=== PATIENT | male | born 1945 | race Caucasian/White ===

== ENCOUNTER 2016-04-23 21:47 | Emergency (ER) | payer MEDICARE ==
[2016-04-23] MEDS ORDERED: METF500T PO (22:23)
[2016-04-23] MEDS ORDERED: PRIL20TA2 PO ×2 (22:23)
[2016-04-23] MEDS ORDERED: PERC5TAB12 PO (22:23)
[2016-04-23] MEDS ORDERED: LISI10TA3 PO (22:23)
[2016-04-23] MEDS ORDERED: ATOR10TA15 PO (22:23)
[2016-04-23 22:24] VITALS: BP 144/87; PULSE 68; RESP 18; TEMP 98.1; O2SAT 98
[2016-04-23] MEDS ORDERED: HYDROmorphone HCL PF 1 MG/ML VIAL IM ONE (22:45)
--- NOTE | 2016-04-23 22:53 | PD ---
HPI Chief Complaint: Fall Time Seen by Provider: 22:44 Travel History International Travel<30 days: No Contact w/Intl Traveler<30days: No Traveled to known affect area: No History of Present Illness HPI Patient is a 71-year-old male with history of bilateral total knee replacements on chronic opioids presenting with left knee, calf and right thumb pain. At 8: 30 AM he states his right foot slipped out from under him on wet wood and his left leg "folded" underneath him, hyperflexing the knee and landing with it flexed. He said pain and swelling of the knee since. Pain is medial anterior. He has pain with movement but has normal range of motion. He has been able to bear weight but is extremely painful. He denies any instability of the knee. His home Percocet is not helping very much. He said some pain develop in the mid calf as well. He denies he pain in the ankle, thigh, hip or foot. He denies weakness or paresthesia. He did not hit his head is consciousness. His pain on the base of the thumb denies paresthesias and weakness and instability. He didn't hit his lose consciousness and denies other injuries this time. [facility] Past Medical History High Cholesterol: Yes Diabetes: Yes Patient Takes Glucophage: Yes Diminished Hearing: No GERD: Yes Hypertension: Yes Immunizations Current: Yes Tetanus Vaccination: Unknown Influenza Vaccination: Yes Past Surgical History Appendectomy: Yes Social History Alcohol Use: Yes (SOCIAL) Tobacco Use: No (QUIT 2013) Substance Use: No Allergies-Medications (Allergen,Severity, Reaction): Coded Allergies: No Known Allergies (Unverified , 04/23/16) Reported Meds & Prescriptions Reported Meds & Active Scripts Active Reported Prilosec (Omeprazole Magnesium) 20 Mg Tab 20 Mg PO BID Prilosec (Omeprazole Magnesium) 20 Mg Tab 20 Mg PO DAILY Atorvastatin (Atorvastatin Calcium) 10 Mg Tab 10 Mg PO HS Metformin (Metformin HCl) 500 Mg Tab 500 Mg PO DAILY With a meal Percocet (Oxycodone-Acetaminophen) 5-325 mg Tab 1 Tab PO Q12HR PRN Lisinopril 10 Mg Tab 10 Mg PO DAILY Review of Systems HENT: No: Headaches, Neck Pain Musculoskeletal: Positive: Other (see the history of present illness) Neurologic: No: Weakness, Focal Abnormalities, Paresthesia, Sensory Disturbance Physical Exam Narrative GENERAL: Well-developed and well-nourished adult male in no acute distress. SKIN: Warm and dry. Good turgor without tenting. HEAD: Normocephalic and atraumatic. CARDIOVASCULAR: Regular rate and rhythm without murmurs, rubs, clicks or gallops. Radial, dorsalis pedis and posterior tibial pulses 2+ bilaterally. Refill less than 2 seconds to the right thumb and all the toes the left foot. No pedal edema. RESPIRATORY: Clear to auscultation bilaterally with symmetrical rise and fall, no distress or use of accessory muscles. MUSCULOSKELETAL: Both knees have anterior well-healed surgical scars. Left knee has edema without discoloration or warmth. Tenderness to palpation of the left medial tibial plateau and left MCL. No patellar or fibular head tenderness. There is some looseness of the endpoint with valgus stress of the left knee when compared to the right. There is a slight clicking sensation Negative varus stress test. Negative anterior and posterior drawer test the left knee. Patient's pain was squeezing on the left calf muscles which are not discolored or edematous. Palpation of the hamstring tendons feels they're firmly intact. Patient is normal range of motion of the left knee flexion and extension. Palpation of the tib-fib reveals no pain with squeezing of the mid tib-fib together does cause discomfort. Right thumb has no edema or discoloration. Palpation of the left hip, ankle and foot reveals no tenderness and they've normal range of motion. There is no laxity at the base of the thumb suggesting ligamentous disruption. Does have pain at the base of the thumb however but not the phalanges. No hand or wrist tenderness. Patient freely moving all four extremities spontaneously. Extremities without clubbing or cyanosis. No obvious deformities. NEUROLOGIC: CN II-XII grossly intact. Awake and alert. Strength 5/5 bilateral hip flexion, hip extension, knee flexion, knee extension, plantar and dorsiflexion. Sensation intact to the distal tip of all toes of left foot. Strength 5/5 in flexion, extension, abduction and adduction of the right thumb, sensation intact to the distal tip of the right thumb. Normal speech. PSYCHIATRIC: Appropriate mood and affect; insight and judgment normal. Data Data Last Documented VS Vital Signs Date Time Temp Pulse Resp B/P Pulse Ox O2 Delivery O2 Flow Rate FiO2 04/24/16 00:55 68 18 132/78 99 04/24/16 00:19 Room Air 04/23/16 22:24 98.1 Orders Hydromorphone Pf Inj (Dilaudid Pf Inj) (04/23/16 22:45) Finger ([id number]) (04/23/16 22:41) Knee, Complete (4vws) (04/23/16 22:41) Tibia/Fibula (Ap/Lat) (04/23/16 22:41) Hydromorphone Pf Inj (Dilaudid Pf Inj) (04/24/16 00:15) [facility] Medical Decision Making Medical Screen Exam Complete: Yes Emergency Medical Condition: Yes Differential Diagnosis Knee sprain versus MCL tear versus knee fracture versus tib-fib injury versus bone sprain versus fracture versus gamekeeper's thumb Narrative Course Patient is a 71-year-old male with history of bilateral total knee replacement presenting with left knee pain and edema after slip and fall on hyperflexion injury earlier this morning. He does have some increased laxity at the MCL joint and some clicking with this maneuver. He is feeling normal range of motion in the knee and is neurovascularly intact. Has tib-fib pain with squeezing the syndesmosis. No hip or ankle pain. Some pain of the right thumb which likely represent sprain, no ligamentous disruption or obvious signs of fracture. Patient was given Dilaudid 1 mg IM as his home Percocet does not seem to be helping and given he is on these for chronic pain and likely will not be very effective for acute pain. Ordered x-ray of the right thumb, left knee and left tib-fib. This patient was signed out to Dr. Lackey. Diagnosis Primary Impression: Knee contusion Qualified Code: S80.02XA - Contusion of left knee, initial encounter Additional Impression: Finger contusion Qualified Code: S60.011A - Contusion of right thumb without damage to nail, initial encounter Condition: Stable Edgar Sexton III Apr 23, 2016 22:53
--- NOTE | 2016-04-23 23:43 | RADHPO ---
EXAM DATE/TIME: 04/23/2016 23:20 [facility] COMPARISON: No previous studies available for comparison. INDICATIONS : Patient states he fell this morning, left knee pain. MEDICAL HISTORY : None. SURGICAL HISTORY : Total knee replacement, left. Total knee replacement, right. ENCOUNTER: Initial ACUITY: 1 day PAIN SCORE: 8/10 LOCATION: Left Knee FINDINGS: Four view examination of the left knee demonstrates left knee arthroplasty. No fracture. No hardware loosening. Small joint effusion. The articular surfaces are intact. Soft tissue calcifications. CONCLUSION: Left knee arthroplasty and small effusion. No fracture. Alonzo Heart MD on April 23, 2016 at 23:41 Board Certified Radiologist. This report was verified electronically.
--- NOTE | 2016-04-23 23:44 | RADHPO ---
EXAM DATE/TIME: 04/23/2016 23:22 [facility] COMPARISON: No previous studies available for comparison. INDICATIONS : Patient states he fell this morning, lower leg pain. MEDICAL HISTORY : None. SURGICAL HISTORY : Total knee replacement, right. Total knee replacement, left. ENCOUNTER: Initial ACUITY: 1 day PAIN SCORE: 4/10 LOCATION: Left Tib/Fib FINDINGS: Two view examination of the left tibia demonstrates no evidence of fracture or dislocation. Bony min eralization is normal. The soft tissue structures are intact. Left knee arthroplasty. CONCLUSION: No acute fracture. Alonzo Heart MD on April 23, 2016 at 23:42 Board Certified Radiologist. This report was verified electronically.
--- NOTE | 2016-04-23 23:45 | RADHPO ---
EXAM DATE/TIME: 04/23/2016 23:26 [facility] COMPARISON: No previous studies available for comparison. INDICATIONS : Patient states he fell this morning, first digit pain. MEDICAL HISTORY : None. SURGICAL HISTORY : None. ENCOUNTER: Initial ACUITY: 1 day PAIN SCORE: 2/10 LOCATION: Right Hand, 1st Digit FINDINGS: Examination of the first digit of the right hand demonstrates no evidence of fracture or dislocation. No radiopaque foreign bodies are seen. Soft tissue swelling and mild degenerative changes. CONCLUSION: Soft tissue swelling and degenerative changes of the first digit. No fracture. Alonzo Heart MD on April 23, 2016 at 23:42 Board Certified Radiologist. This report was verified electronically.
--- NOTE | 2016-04-23 23:51 | PD ---
Data Data Last Documented VS Vital Signs Date Time Temp Pulse Resp B/P Pulse Ox O2 Delivery O2 Flow Rate FiO2 04/24/16 00:55 68 18 132/78 99 04/24/16 00:19 Room Air 04/23/16 22:24 98.1 Orders Hydromorphone Pf Inj (Dilaudid Pf Inj) (04/23/16 22:45) Finger ([id number]) (04/23/16 22:41) Knee, Complete (4vws) (04/23/16 22:41) Tibia/Fibula (Ap/Lat) (04/23/16 22:41) Hydromorphone Pf Inj (Dilaudid Pf Inj) (04/24/16 00:15) [facility] Supervised Visit with VIOLETTA: Yes Narrative Course Patient care assumed from Edgar Benoit at 2300. Patient is a 71-year-old male with a history of bilateral knee replacement presents today with left knee pain after hyperflexing his knee. Patient states that he does not think the knee dislocated. States he has pain and swelling at the knee joint itself. Has been ambulatory on it. On my physical exam he does have some mild swelling at the knee and a minimal joint effusion. There is full range of motion and appears quite comfortable. Pulses are bounding and equal in bilateral lower extremities at popliteal, dorsalis pedis and posterior tibial. X-rays show no acute bony abnormality and his artificial knee is sitting properly. Patient is ambulatory in emerged Department. He was given an addition dose of Dilaudid IM. He does take a significant amount of opiate medication at home for chronic pain. He is however stable for discharge at this time. In my impression and knee immobilizer would be overtreatment. He does have an orthopedist in the area and I instructed to call and make an appointment. Diagnosis Primary Impression: Knee contusion Qualified Code: S80.02XA - Contusion of left knee, initial encounter Additional Impression: Finger contusion Patient Instructions: General Instructions, RICE Therapy (GEN) Disposition: 01 DISCHARGE HOME Condition: Stable Jalen Lackey MD Apr 23, 2016 23:51
[2016-04-24] MEDS ORDERED: HYDROmorphone HCL PF 1 MG/ML VIAL IM ONE (00:15)
[2016-04-24 00:19] VITALS: BP 139/79; PULSE 69; RESP 18; O2SAT 98
[2016-04-24 00:47] VITALS: RESP 18
[2016-04-24 00:55] VITALS: BP 132/78
== END 2016-04-24 00:55 | disposition home or self-care (01) ==
LOC: PHEFT 21:47
DX: S60.011A Contusion of right thumb without damage to nail, initial encounter (principal); S80.02XA Contusion of left knee, initial encounter; Z96.653 Presence of artificial knee joint, bilateral; Z79.891 Long term (current) use of opiate analgesic; E78.00 Pure hypercholesterolemia, unspecified; E11.9 Type 2 diabetes mellitus without complications; I10 Essential (primary) hypertension; Z79.4 Long term (current) use of insulin; Z87.891 Personal history of nicotine dependence; W01.0XXD Fall on same level from slipping, tripping and stumbling without subsequent striking against object, subsequent encounter; Y93.01 Activity, walking, marching and hiking; Y99.9 Unspecified external cause status
CPT/HCPCS: 73140; 73564; 73590; 96372; 99284; J1170